=== PATIENT | male | born 1945 | race Caucasian/White ===

== ENCOUNTER 2024-08-23 17:32 | Inpatient (IN) | payer MEDICARE, OTHER ==
[~2024-08-23] VITALS: Ht 182.9 cm; Wt 106.4 kg
[2024-08-23] MEDS ORDERED: FentaNYL Citrate 50 MCG/ML 2 ML Injection IV ONE (18:55)
[2024-08-23] MEDS ORDERED: Ondansetron HCl 2 MG / ML 2ML Vial IV ONE (19:40)
[2024-08-23] MEDS ORDERED: HYDROmorphone HCl/Pf 1MG SYR IV ONE (19:40)
[2024-08-23 21:19] LABS: BASOPHILS ABSOLUTE AUTO 0.03 K/mm3 (0.00-0.23); BASOPHILS PERCENT AUTO 0 % (0-2); EOSINOPHILS ABSOLUTE AUTO 0.01 K/mm3 (0.00-0.68); EOSINOPHILS PERCENT AUTO 0 % (0-6); Hematocrit 40.4 % (37.0-53.0); Hemoglobin 13.6 g/dL (13.5-17.5); IMMATURE GRAN ABSOLUTE AUTO 0.03 K/mm3 (0.00-0.10); IMMATURE GRAN PERCENT AUTO 0 % (0-1); LYMPHOCYTES PERCENT AUTO 5 % (21-46); MONOCYTES ABSOLUTE AUTO 0.61 K/mm3 (0.16-1.47); MONOCYTES PERCENT AUTO 5 % (4-13); Mean Corpuscular HGB 30.2 pg (26.0-34.0); Mean Corpuscular HGB Conc 33.7 g/dL (31.5-36.5); Mean Corpuscular Volume 90 fL (80-100); Mean Platelet Volume 10.4 fL (9.1-12.4); NEUTROPHILS ABSOLUTE AUTO 10.47 K/mm3 (1.96-9.15); NEUTROPHILS PERCENT AUTO 89 % (41-73); Platelet Count 136 K/mm3 (150-400); RDW Coefficient Variation 12.9 % (11.7-14.2); RDW Standard Deviation 42.1 fL (35.1-46.3); Red Blood Cell Count 4.51 M/mm3 (4.30-5.90); White Blood Cell Count 11.75 K/mm3 (4.00-11.30)
[2024-08-23 21:36] LABS: Albumin, Blood 3.5 g/dL (3.4-5.0); Albumin/Globulin Ratio 1.1 (0.8-1.8); Bilirubin, Total 0.9 mg/dL (0.1-1.0); Bun/Creatinine Ratio 16.9 (12.0-20.0); Calcium, Blood 8.7 mg/dL (8.5-10.1); Creatinine, Blood 0.83 mg/dL (0.60-1.20); Globulin, Blood 3.1 g/dL (2.2-4.0); Potassium, Blood 4.5 mmol/L (3.5-5.5); Total Protein, Blood 6.6 g/dL (6.4-8.2)
[2024-08-23] MEDS ORDERED: OxyCODONE 5 mg/Acetamin 325 mg TABLET PO PRN (21:50)
[2024-08-23] MEDS ORDERED: FentaNYL Citrate 50 MCG/ML 2 ML Injection IV PRN (21:50)
[2024-08-23] MEDS ORDERED: Ondansetron HCl 2 MG / ML 2ML Vial IV PRN (21:50)
[2024-08-23] MEDS ORDERED: Metoprolol Tartrate 1 MG/ML 5 ML VIAL IV PRN (21:55)
[2024-08-23 22:11] LABS: International Normalized Ratio 1.08; Prothrombin Time Results 11.5 Sec (9.7-11.5)
[2024-08-23] MEDS ORDERED: FLU VACC TS2024-25(6MOS UP)/PF 45 MCG/0.5 ML SYRINGE IM ONE (23:00)
[2024-08-24] VITALS (20 sets, daily range): BP systolic 108–138; BP diastolic 60–92
[2024-08-24] MEDS ORDERED: FentaNYL Citrate 50 MCG/ML 2 ML Injection IV PRN (02:25)
--- NOTE | 2024-08-24 02:40 | NUR ---
ADMIT NOTE REPORT WAS RECEIVED FROM ER AT 0000. PT WAS BROUGHT DOWN ON A GURNEY AND TRANSFERED TO THE HOSPITAL BED. PT IS HERE FOR A LT HIP FX. C/O PAIN TO LT HIP. MEDICATED WITH FENTANYL. REMAINS ON O2 AT 2L VIA NC AND A BIPAP WHILE HE IS SLEEPING. PT WAS HAVING ALOT OF PAIN AND CONDOM CATH WASNT WORKING FOR HIM. CALLED MD AND GOT A ORDER TO PUT IN A WIN CATHETER. WIN WAS PUT IN PT TOLERATED WELL. FS DONE Q6HR WAS 338 AT 0000 AND HE RECEIVED HUMALOG. PT WAS ORIENTED TO ROOM AND STAFF. HES NOW NPO AFTER MIDNIGHT R/T SURGERY IN THE AM.
--- NOTE | 2024-08-24 03:42 | NUR ---
SHIFT SUMMARY PT ALERT ORIENTED ABLE TO VERBALIZE NEEDS. REMAINS ON BED REST R/T LT HIP FX. PT C/O PAIN TO LT HIP MEDICATED WITH FENTANYL. REMAINS ON 2 L VIA NC DURING THE DAY AND BIPAP AT NIGHT. REMAINS WITH A WIN CATH DRAINING YELLOW URINE. FS DONE Q6HR WAS 338 AT 0000. HES BEEN NPO SINCE 0000 FOR SURGERY. HE HAS REDNESS UNDER HIS ABD FOLDS AND A ABRASION TO HIS RT ELBOW. REMAINS ON TELEMETRY AT NSR WITH A RATE OF 75 WITH OCC PVCS. HES RESTING IN BED AT THIS TIME WITH CALL LIGHT IN REACH.
[2024-08-24 04:55] LABS: Hematocrit 40.9 % (37.0-53.0); Hemoglobin 13.8 g/dL (13.5-17.5); Mean Corpuscular HGB 30.1 pg (26.0-34.0); Mean Corpuscular HGB Conc 33.7 g/dL (31.5-36.5); Mean Corpuscular Volume 89 fL (80-100); Mean Platelet Volume 10.6 fL (9.1-12.4); Platelet Count 138 K/mm3 (150-400); RDW Coefficient Variation 13.1 % (11.7-14.2); RDW Standard Deviation 43.1 fL (35.1-46.3); Red Blood Cell Count 4.59 M/mm3 (4.30-5.90); White Blood Cell Count 10.02 K/mm3 (4.00-11.30)
[2024-08-24 06:06] LABS: Bun/Creatinine Ratio 19.6 (12.0-20.0); Calcium, Blood 8.8 mg/dL (8.5-10.1); Creatinine, Blood 0.77 mg/dL (0.60-1.20); Potassium, Blood 4.5 mmol/L (3.5-5.5)
--- NOTE | 2024-08-24 06:24 | NUR ---
PT C/O SEVERE PAIN TO LT HIP AND STATING THAT THE FENTANYL ISNT TOUCHING HIS PAIN. HE STATED THAT HE TOOK DILAUDID IN THE ER AND THAT IT WORKED MUCH BETTER ROEL HELP TO CONTROL HIS PAIN. CALLED MD AND GOT A ORDER FOR DILAUDID Q6HR PRN.
[2024-08-24] MEDS ORDERED: HYDROmorphone HCl/Pf 1MG SYR IV PRN (06:25)
--- NOTE | 2024-08-24 06:50 | NUR ---
RECEIVED A CALL FROM [employer] THAT THE PT HAS BEEN IN AFIB AND NOT IN NSR. WILL PASS ON TO NEXT SHIFT TO F/UY WITH
--- NOTE | 2024-08-24 07:22 | NUR ---
PHYSICIAN CALLED AND UPDATED THAT PT HAS WENT INTO AFIB WITH A CONTROLLD RATE. NO NEW ORDERS RECEIVED AT THIS TIME.
--- NOTE | 2024-08-24 10:00 | NUR ---
ARRIVAL NOTE PT TRANSFERRED FROM MEDICAL FLOOR TO RM 216. PT IS A/OX4. PT HAS NO COMPLAINTS AT THIS TIME. BEDSIDE REPORT DONE WITH VERTICAL CONTOUR BAND SAW OPERATOR. PT HAS WIN CATH IN PLACE AND IS DRAINING FREELY. PT'S R LEG IS EXTERNALLY ROTATED AND SHORTENED. PT HAS SMALL SKIN TEAR TO R ELBOW WHICH IS OPEN TO AIR. PT HAS SMALL AMOUNT OF REDNESS UNDER BELLY FOLD. PT WEARING HOME O2 AT 2L/MIN AND BIOX WNL. PT ORIENTED TO ROOM, USE OF CALL LIGHT. CALL LIGHT IN REACH AND SIDE RAILS UP.
[2024-08-24] MEDS ORDERED: TIZANIDINE HCL213 PO (10:27)
[2024-08-24] MEDS ORDERED: METOPROLOL SUCC25 MG PO (10:28)
[2024-08-24] MEDS ORDERED: CITALOPRAM HBR20 M9 PO (10:28)
[2024-08-24] MEDS ORDERED: FURO80 PO (10:28)
[2024-08-24] MEDS ORDERED: ACTOS30 MG PO (10:29)
[2024-08-24] MEDS ORDERED: SPIRONOLACTONE25 MG PO (10:29)
[2024-08-24] MEDS ORDERED: TAMSULOSIN HCL0.4 M1 PO (10:30)
[2024-08-24] MEDS ORDERED: Simvastatin40 MG PO (10:30)
[2024-08-24] MEDS ORDERED: ISOSORBIDE MONO30 MG PO (10:31)
[2024-08-24] MEDS ORDERED: Lactated Ringer's 1,000 ML IV SCH (11:00)
--- NOTE | 2024-08-24 11:00 | NUR ---
PRE-OP WASH DONE. PT TO DAY SURGERY WITH OR NURSE.
--- NOTE | 2024-08-24 11:38 | NUR ---
1109- PATIENT TRANSFERED TO DAY SURGERY VIA BED ON RA. DUE TO SURGEON DELAY, TRANSFERING BACK TO ROOM 216 VIA BED AT 1139. REGIONAL TRAINER GIVEN REPORT.
--- NOTE | 2024-08-24 11:52 | NUR ---
PT BACK TO ROOM 216 FROM DAY SURGERY DUE TO SURGEON BEING DELAYED. PT MEDICATED WITH DILAUDID 1MG IVP FOR PAIN.
[2024-08-24] MEDS ORDERED: CeFAZolin Sodium 2,000 MG in NS 100 ML IV SCH (12:55)
[2024-08-24] MEDS ORDERED: Tranexamic Acid 100 ML IV SCH (12:55)
--- NOTE | 2024-08-24 13:06 | NUR ---
PT TO DAY SURGERY WITH OR NURSES.
[2024-08-24] MEDS ORDERED: Bupivacaine 0.5% HCl 5 MG/ML 30MLVIAL ONE (13:11)
[2024-08-24] MEDS ORDERED: FentaNYL Citrate 50 MCG/ML 2 ML Injection ONE ×2 (13:37→15:39)
[2024-08-24] MEDS ORDERED: Lidocaine HCl 2% 20 ML MDV ONE (13:37)
[2024-08-24] MEDS ORDERED: propofoL 20 ML IV ONE (13:37)
--- NOTE | 2024-08-24 13:51 | NUR ---
PCU DISPATCHER RADIOACTIVE WASTE DISPOSAL NOTIFIED TELEMETRY BEING TURNED OFF FOR SURGERY.
[2024-08-24] MEDS ORDERED: ePHEDrine Sulfate 50 MG/ML 1ML Injection ONE (14:11)
--- NOTE | 2024-08-24 14:43 | NUR ---
REPORT TO IVETH AGGARWAL. PT REMAINS IN OR.
[2024-08-24] MEDS ORDERED: Ondansetron HCl 2 MG / ML 2ML Vial ONE (14:45)
--- NOTE | 2024-08-24 16:22 | NUR ---
PT ARRIVED TO FROM PACU AT 1615. PT DROWSY BUT WAKES WHEN SPOKEN TO. PT WAS ORIENTED TO HIMSELF, PLACE AND SITUATION BUT DID NOT REMEMBER THAT HE HAD SURGERY. PT APPEARS TO REST COMFORTABLY. PT WAS ASSISTED TO DRINK SOME WATER. VSS. CALL LIGHT PLACED WITHIN REACH.
[2024-08-24] MEDS ORDERED: Insulin Human Lispro 100 Units/ML 3ML Syringe SC SCH ×2 (17:15)
--- NOTE | 2024-08-24 18:18 | NUR ---
SHIFT SUMMARY PT IS POD#0 FROM L HIP REPAIR WITH DR. COVARRUBIAS. PAIN MANAGED WITH PO PAIN MEDICATION. PT TOLERATING CLEAR LIQUIDS AND ATTEMPTING DINNER AT THIS TIME. VSS. CALL LIGHT WITHIN REACH.
--- NOTE | 2024-08-24 19:49 | NUR ---
AFTER BEDSIDE REPORT WAS GIVEN PT STARTED COUGHING AND REPORTED FEELING LIKE FOOD WAS STUCK IN HIS THROAT. THIS RN AND NOC RN SIRIA ASSISTED TO IMPROVE PT POSITION. PT'S VOICE QUALITY CHANGED. O2 SATURATION DECREASED TO 86% TEMPORARILY WHEN PT REMOVED O2 FROM HIS NOSE, O2 WAS REPLACED AND BRIEFLY INCREASED TO 4L, O2 SATURATION INCREASED TO MID 90'S. PT IS NOW ON 2L O2 VIA NC. THIS RN ATTEMPTED TO CALL DR. KING TO REQUEST A CHEST XRAY AND ST EVAL TOMORROW, WAITING FOR RETURN CALL. SUCTION SET UP IN PT ROOM. SIRIA AGGARWAL STATED SHE WILL FOLLOW UP WITH DR. KING REGARDING THIS ISSUE.
--- NOTE | 2024-08-24 20:57 | NUR ---
UPDATE XRAY COMPLETED ORDERED. PT REPORTS, " A PIECE OF DRY CHICKEN DIDNT GO DOWN RIGHT. I FEEL FINE NOW . IT MUST HAVE PASSED ON THROUGH." DENIES SOB OR DIFFICULTY SWALLOWING. PT HAS CALL LIGHT IN REACH AND ABLE TO MAKE NEEDS KNOWN. WILL CONTINUE TO CARE FOR PT
[2024-08-24] MEDS ORDERED: Sennosides 8.6 MG Tab PO SCH (21:00)
[2024-08-24] MEDS ORDERED: Insulin Human Lispro 100 Units/ML 3ML Syringe SC ONE (21:30)
--- NOTE | 2024-08-24 22:00 | NUR ---
UPATE PT APPEARS TO BE RESTING IN BED, APPEARS COMFORTABLE. RESPIRATIONS EQUAL AND UNLABORED. CONT BIOX IN PLACE, SP02 ABOVE 93%. HAS CALL LIGHTIN REACH.
[2024-08-25 00:24] VITALS: BP 156/96
[2024-08-25 03:24] VITALS: BP 128/79
[2024-08-25] MEDS ORDERED: NS 1,000 ML IV SCH (04:05)
[2024-08-25 04:54] LABS: BASOPHILS ABSOLUTE AUTO 0.01 K/mm3 (0.00-0.23); BASOPHILS PERCENT AUTO 0 % (0-2); EOSINOPHILS PERCENT AUTO 0 % (0-6); Hematocrit 32.2 % (37.0-53.0); Hemoglobin 11.1 g/dL (13.5-17.5); IMMATURE GRAN ABSOLUTE AUTO 0.04 K/mm3 (0.00-0.10); IMMATURE GRAN PERCENT AUTO 0 % (0-1); LYMPHOCYTES ABSOLUTE AUTO 0.56 K/mm3 (0.84-5.20); LYMPHOCYTES PERCENT AUTO 5 % (21-46); MONOCYTES ABSOLUTE AUTO 1.18 K/mm3 (0.16-1.47); MONOCYTES PERCENT AUTO 11 % (4-13); Mean Corpuscular HGB 30.4 pg (26.0-34.0); Mean Corpuscular HGB Conc 34.5 g/dL (31.5-36.5); Mean Corpuscular Volume 88 fL (80-100); Mean Platelet Volume 10.9 fL (9.1-12.4); NEUTROPHILS ABSOLUTE AUTO 9.22 K/mm3 (1.96-9.15); NEUTROPHILS PERCENT AUTO 84 % (41-73); Platelet Count 122 K/mm3 (150-400); RDW Coefficient Variation 13.2 % (11.7-14.2); RDW Standard Deviation 43.1 fL (35.1-46.3); Red Blood Cell Count 3.65 M/mm3 (4.30-5.90); White Blood Cell Count 11.01 K/mm3 (4.00-11.30)
--- NOTE | 2024-08-25 05:06 | NUR ---
SHIFT SUMMARY PT RESTED WELL T/O NIGHT, PER PT REPORT. NPO WITH IVF INFUSING PER ORDERS R/T AWAITING SWALLOW EVALUATION. AQUACEL TO LEFT HIP CDI WITHOUT ANY SHADOWING NOTED. ICE THERAPY TO LEFT HIP APPLIED TOLERATED. CONT BIOX IN PLACE, CPAP OR 2L NC MAINTAINING SPO2 ABOVE 93%. TELE IN PLACE, AFIB AT 94BPM PER FORESTRY TREE PRUNER- PT DENIES SX OF DISCOMFORT, CHEST PAIN/PRESSURE. DENIES N/V. MEDICATED 2X FOR PAIN WITH PO MEDICATION PER EMAR. WIN CATH TO GRAVITY DRAIN, URINE GULSHAN/YELLOW IN COLOR. PLAN TO WORK WITH THERAPY TODAY. PT CURRENTLY RESTING IN BED WITH EYES CLOSED. IS A/OX4 AND ABLE TO MAKE NEEDS KNOWN. HAS CALL LIGHT IN REACH AND BED RAILS UP. WILL GIVE REPORT TO ONCOMING RN.
[2024-08-25 05:49] LABS: Albumin/Globulin Ratio 1.1 (0.8-1.8); Bilirubin, Total 1.1 mg/dL (0.1-1.0); Bun/Creatinine Ratio 22.3 (12.0-20.0); Calcium, Blood 8.6 mg/dL (8.5-10.1); Creatinine, Blood 0.99 mg/dL (0.60-1.20); Globulin, Blood 2.8 g/dL (2.2-4.0); Potassium, Blood 4.6 mmol/L (3.5-5.5); Total Protein, Blood 5.8 g/dL (6.4-8.2)
--- NOTE | 2024-08-25 05:50 | NUR ---
TELE UPDATE PER [employer] PRINCIPAL SOLUTION SPECIALIST, ONGOING ST DEPRESSION WAS NOTED. PT DENIES FEELING ANY CHANGES OR DISCOMFORT. VITALS SIGNS STABLE. PT CURRENTLY RESTING IN BED. WILL INFORM DAY RN
[2024-08-25 07:21] VITALS: BP 135/88
[2024-08-25] MEDS ORDERED: Insulin Regular 100 UNIT/ML 10ML Vial SC SCH (07:30)
[2024-08-25] MEDS ORDERED: Metoprolol Succinate 25 MG TABCR PO SCH (09:00)
[2024-08-25] MEDS ORDERED: Citalopram Hydrobromide 20 MG Tab PO SCH (09:00)
[2024-08-25] MEDS ORDERED: Furosemide 80 MG Tab PO SCH (09:00)
[2024-08-25] MEDS ORDERED: Isosorbide Mononitrate 30 MG TABCR PO SCH (09:00)
[2024-08-25] MEDS ORDERED: Spironolactone 25 MG Tab PO SCH (09:00)
[2024-08-25] MEDS ORDERED: Insulin Glargine-Yfgn 100 Unit/mL 3 ML SYR SC SCH (12:00)
[2024-08-25 15:12] VITALS: BP 93/60
[2024-08-25] MEDS ORDERED: Tamsulosin HCl 0.4 MG Cap PO SCH (18:00)
--- NOTE | 2024-08-25 18:20 | NUR ---
SHIFT SUMMARY POD1 L HIP NAILING, A/OX4, VSS, TOLERATING PO, WORKED WITH THERAPY [place] BUT WAS ONLY ABLE TO STAND AT THE BEDSIDE BUT UNABLE TO STAND ALL THE WAY UP, PAIN WELL MANAGED TODAY PER EMAR, PLAN POTENTIALLY FOR SNF REHAB, KIDS TO COME DOWN TOMORROW TO HELP DISCUSS PLACEMENT OPTIONS. NO ACUTE EVENTS THIS SHIFT, CALL LIGHT IN REACH.
[2024-08-25 19:21] VITALS: BP 99/57
[2024-08-25] MEDS ORDERED: Atorvastatin 10 MG Tab PO SCH (21:00)
[2024-08-26 04:34] VITALS: BP 122/77
[2024-08-26 05:03] LABS: BASOPHILS ABSOLUTE AUTO 0.03 K/mm3 (0.00-0.23); BASOPHILS PERCENT AUTO 0 % (0-2); EOSINOPHILS PERCENT AUTO 1 % (0-6); Hematocrit 28.4 % (37.0-53.0); Hemoglobin 9.9 g/dL (13.5-17.5); IMMATURE GRAN ABSOLUTE AUTO 0.03 K/mm3 (0.00-0.10); IMMATURE GRAN PERCENT AUTO 0 % (0-1); LYMPHOCYTES ABSOLUTE AUTO 1.21 K/mm3 (0.84-5.20); LYMPHOCYTES PERCENT AUTO 15 % (21-46); MONOCYTES ABSOLUTE AUTO 1.04 K/mm3 (0.16-1.47); MONOCYTES PERCENT AUTO 13 % (4-13); Mean Corpuscular HGB 30.7 pg (26.0-34.0); Mean Corpuscular HGB Conc 34.9 g/dL (31.5-36.5); Mean Corpuscular Volume 88 fL (80-100); Mean Platelet Volume 10.9 fL (9.1-12.4); NEUTROPHILS ABSOLUTE AUTO 5.91 K/mm3 (1.96-9.15); NEUTROPHILS PERCENT AUTO 71 % (41-73); Platelet Count 101 K/mm3 (150-400); RDW Coefficient Variation 13.1 % (11.7-14.2); Red Blood Cell Count 3.22 M/mm3 (4.30-5.90); White Blood Cell Count 8.32 K/mm3 (4.00-11.30)
[2024-08-26 05:26] LABS: Bun/Creatinine Ratio 29.7 (12.0-20.0); Calcium, Blood 8.5 mg/dL (8.5-10.1); Creatinine, Blood 1.01 mg/dL (0.60-1.20); Potassium, Blood 3.8 mmol/L (3.5-5.5)
--- NOTE | 2024-08-26 05:49 | NUR ---
SHIFT SUMMARY POD 2 LEFT HIP REPAIR. AQUACEL DRESSING COVERING INCISION CDI. ICE THERAPY APPLIED TOLERATED TO HIP. MEDICATED 2X FOR PAIN PER EMAR. PT REFUSES SCD'S AT THIS TIME DUE TO DISCOMFORT. TOLERATING PO INTAKE, ON A SOFT CHEW DIET. DENIES NV. ENCOURAGED AMBULATION AND PO INTAKE. IV SL TO RIGHT AC. PER AUDIT REVIEWER HR IS AFIB AT 79 BPM , PT DENIES DISCOMFORT. CONT BIOX IN PLACE, SPO2 ABOVE 93 ON CPAP, DENIES SOB. REFUSING TO HAVE WIN CATH REMOVED DUE TO AMBULATION AND INCONTINENCE. EDUCATED ON RISK VS BENEFITS BY THIS RN. PT VERBALIZED UNDERSTANDING AND CONT TO REFUSE REMOVAL. WILL HAVE DAY RN NOTIFY PROVIDER. PLAN FOR PATIENT TO WORK WITH THERAPY. PT CURRENLTY IN BED WITH CPAP ON AND CALL LIGHT IN REACH. WILL GIVE REPORT TO ONCOMING RN.
[2024-08-26 07:21] VITALS: BP 109/54
--- NOTE | 2024-08-26 12:11 | NUR ---
SNF CHOICES PT PROVIDED INFORMATION ON LOCAL AREA SNF FOR REHAB AT DISCHARGE. PT WOULD PREFER TO GO TO A FACILITY IN [place] HIS KIDS LIVE UP THERE AND WILL BE ABLE TO PARTICIPATE IN HIS REHAB WIHT HIM THERE. HE LISTED HIS PREFERENCE FOLLOWS FOR TOP 5: 1. [facility] [address] [facility], 2. [facility] [address] [facility], 3. [facility] [address] [facility] [phone] 4. [facility] [address] [facility] [phone] 5. [facility] [address] [facility],
[2024-08-26 15:15] VITALS: BP 98/58
[2024-08-26 15:17] VITALS: BP 94/55
[2024-08-26 19:23] VITALS: BP 102/54
--- NOTE | 2024-08-26 19:35 | NUR ---
SHIFT SUMMARY POD2 L HIP NAILING, A/OX4, VSS, TOLERATING PO, DENIES PAIN WHILE NOT MOVING, PT WAS RELUCTANT TO HAVE WIN REMOVED WANTING IT TO STAY IN UNTIL DISCHARGE OS HE WOULD NOT HAVE TO GET UP OR MORE, EDUCTED HIM ON UTI RISK AND DISCUSSED ALTERNATIVES, ATTEMPTED TO USE A CONDOM CATH BUT THIS WAS NOT ABLE TO STAY IN PLACE, FULL BED CHANGE GIVEN. PT MADE CHOICES ON SNF UP IN [place] IN WHICH THIS INFORMATION IS IN ANOTHER NURSE NOTE. NO ACUTE EVENTS THIS SHIFT, CALL LIGHT IN REACH.
[2024-08-27 04:21] VITALS: BP 118/60
[2024-08-27 04:33] LABS: BASOPHILS ABSOLUTE AUTO 0.04 K/mm3 (0.00-0.23); BASOPHILS PERCENT AUTO 1 % (0-2); EOSINOPHILS ABSOLUTE AUTO 0.19 K/mm3 (0.00-0.68); EOSINOPHILS PERCENT AUTO 3 % (0-6); Hematocrit 28.7 % (37.0-53.0); Hemoglobin 9.8 g/dL (13.5-17.5); IMMATURE GRAN ABSOLUTE AUTO 0.03 K/mm3 (0.00-0.10); IMMATURE GRAN PERCENT AUTO 0 % (0-1); LYMPHOCYTES ABSOLUTE AUTO 1.19 K/mm3 (0.84-5.20); LYMPHOCYTES PERCENT AUTO 18 % (21-46); MONOCYTES ABSOLUTE AUTO 0.86 K/mm3 (0.16-1.47); MONOCYTES PERCENT AUTO 13 % (4-13); Mean Corpuscular HGB 30.4 pg (26.0-34.0); Mean Corpuscular HGB Conc 34.1 g/dL (31.5-36.5); Mean Corpuscular Volume 89 fL (80-100); Mean Platelet Volume 11.3 fL (9.1-12.4); NEUTROPHILS PERCENT AUTO 66 % (41-73); Platelet Count 107 K/mm3 (150-400); RDW Coefficient Variation 12.8 % (11.7-14.2); RDW Standard Deviation 41.8 fL (35.1-46.3); Red Blood Cell Count 3.22 M/mm3 (4.30-5.90); White Blood Cell Count 6.71 K/mm3 (4.00-11.30)
[2024-08-27 04:58] LABS: Bun/Creatinine Ratio 28.4 (12.0-20.0); Calcium, Blood 8.4 mg/dL (8.5-10.1); Creatinine, Blood 0.81 mg/dL (0.60-1.20); Potassium, Blood 3.5 mmol/L (3.5-5.5)
--- NOTE | 2024-08-27 05:32 | NUR ---
SHIFT SUMMARY POD 3 S/P LEFT HIP NAIL. AQUACEL DRESSING X 2 CDI WITH SMALL AMOUNT OF SS EXUDATE. ECCHYMOSIS NOTED AROUND INCISION/DRESSING. [facility] THERAPY TO LEFT HIP TOLERATED T/O SHIFT. PT UNINTERESTED IN ASSISTING WITH REPOSTIONING SELF OR ALLOWING STAFF TO REPOSITION HIM. REFUSED SCD'S. PER BATCH MAKER, HR AFIB AT 71 BPM. IS TOLERATING PO INTAKE, DENIES N/V. IV SL. ENCOURAGE FLUID CONSUMPTION AND OOB, PT VERBALIZED UNDERSTANDING. PAIN MANAGED PER EMAR X 1 DURING SHIFT. PLAN FOR POSSIBLE D/C TO SNF. FAMILY HOPEFUL FOR FACILITY IN [place] (SEE PREVIOUS NOTE). PT REFUSING INCONTINENCE CARE DURING NIGHT, WILL ATTEMPT AGAIN PRIOR TO SHIFT CHANGE. EDUCATED ON RISKS AND BENEFITS. PT CURRENTLY RESTING IN BED WITH BIPAP AND CONT BIOX IN PLACE, SPO2 ABOVE 93%. HAS CALL LIGHT IN REACH AND ABLE TO MAKE NEEDS KNOWN. WILL GIVE REPORT TO ONCOMING RN.
[2024-08-27 07:00] VITALS: BP 115/55
[2024-08-27] MEDS ORDERED: Psyllium 1 EA Pack PO SCH (14:00)
[2024-08-27] MEDS ORDERED: Polyethylene Glycol 3350 17 gm PO ONE (14:00)
[2024-08-27] MEDS ORDERED: Pioglitazone HCl 15 MG Tab PO SCH (14:00)
[2024-08-27] MEDS ORDERED: Polyethylene Glycol 3350 17 gm PO PRN (14:00)
[2024-08-27 14:59] VITALS: BP 113/61
[2024-08-27 19:17] VITALS: BP 112/62
--- NOTE | 2024-08-27 19:48 | NUR ---
SHIFT SUMMARY PT IS POD3 FOR L HIP NAILING. DRESSINGS C/D/I. SOME BRUISING PRESENT AROUND SURGICAL SITE. PT USING POLAR PACK FOR PAIN CONTROL AND IS BEING MEDICATED PER EMAR, PAIN IS TOLERABLE AT REST BUT VERY PAINFUL DURING MOVEMENT. PT MEDICATED BEFORE REPOSITIONING NEEDED. PT HAVING INC VOIDS, ATTENDS IN PLACE. UNMOTIVATED TO REPOSITION, TURN IN BED, OR STAND W/ WALKER. BOWEL CARE GIVEN ORDERED. PT ON 2L NC W/ O2 SATS >92%. VSS. PLAN FOR DISCHARGE TOMORROW AFTER PT HAS BM. CALL LIGHT IN REACH.
[2024-08-27] MEDS ORDERED: Docusate Sodium 100 MG Cap PO SCH (21:00)
--- NOTE | 2024-08-28 03:58 | NUR ---
SHIFT SUMMARY NO ACUTE CHANGES T/O TERMITE CONTROL SERVICER. PT CONTINUES TO BE UNMOTIVATED WITH CARE. REFUSING ATTENDS CHANGE UNTIL THIS MORNING. BOWEL CARE ADMINISTERED PER ORDERS. SPO2 ABOVE 93% WITH CPAP IN PLACE. ENCOURAGED OOB AND I.S. USE. PT A/OX4, VSS. PAIN MANAGED WITH [facility]YO THERAPY AND PER EMAR. TOLERATING PO INTAKE, DENIES N/V. REFUSES SCDS. PLAN FOR DISCHARGE TODAY. PT RESTING IN BED WITH EYES CLOSED, RESPIRATIONS EVEN AND UNLABORED WITH CPAP IN PLACE AND CALL LIGHT IN REACH. WILL GIVE REPORT TO ONCOMING RN
[2024-08-28 04:56] VITALS: BP 122/72
[2024-08-28 05:58] LABS: BASOPHILS ABSOLUTE AUTO 0.04 K/mm3 (0.00-0.23); BASOPHILS PERCENT AUTO 1 % (0-2); EOSINOPHILS ABSOLUTE AUTO 0.21 K/mm3 (0.00-0.68); EOSINOPHILS PERCENT AUTO 3 % (0-6); Hematocrit 29.5 % (37.0-53.0); IMMATURE GRAN ABSOLUTE AUTO 0.04 K/mm3 (0.00-0.10); IMMATURE GRAN PERCENT AUTO 1 % (0-1); LYMPHOCYTES ABSOLUTE AUTO 1.15 K/mm3 (0.84-5.20); LYMPHOCYTES PERCENT AUTO 18 % (21-46); MONOCYTES ABSOLUTE AUTO 0.86 K/mm3 (0.16-1.47); MONOCYTES PERCENT AUTO 14 % (4-13); Mean Corpuscular HGB 30.2 pg (26.0-34.0); Mean Corpuscular HGB Conc 33.9 g/dL (31.5-36.5); Mean Corpuscular Volume 89 fL (80-100); Mean Platelet Volume 10.8 fL (9.1-12.4); NEUTROPHILS ABSOLUTE AUTO 3.94 K/mm3 (1.96-9.15); NEUTROPHILS PERCENT AUTO 63 % (41-73); Platelet Count 136 K/mm3 (150-400); RDW Coefficient Variation 12.8 % (11.7-14.2); RDW Standard Deviation 41.9 fL (35.1-46.3); Red Blood Cell Count 3.31 M/mm3 (4.30-5.90); White Blood Cell Count 6.24 K/mm3 (4.00-11.30)
[2024-08-28 06:15] LABS: Bun/Creatinine Ratio 22.6 (12.0-20.0); Calcium, Blood 8.4 mg/dL (8.5-10.1); Creatinine, Blood 0.8 mg/dL (0.60-1.20); Potassium, Blood 3.6 mmol/L (3.5-5.5)
[2024-08-28 07:36] VITALS: BP 113/67
[2024-08-28] MEDS ORDERED: Sod Phosphate/Sod Biphosphate 132 ML BTL PR ONE ×2 (09:00→13:50)
[2024-08-28] MEDS ORDERED: Insulin Glargine-Yfgn 100 Unit/mL 3 ML SYR SC SCH (09:00)
[2024-08-28] MEDS ORDERED: Insulin Glargine-Yfgn 100 Unit/mL 3 ML SYR SC ONE (09:55)
[2024-08-28] MEDS ORDERED: Bisacodyl 10 MG Supp PR ONE (15:30)
--- NOTE | 2024-08-28 15:36 | NUR ---
PT REQUESTED TO ATTEMPT TO HAVE BOWEL MOVEMENT ON HIS OWN BEFORE ENEMA, ENEMA DELAYED. ENEMA ATTEMPTED, BUT FLUID UNABLE TO ENTER RECTUM DUE TO STOOL AT THE RECTUM. NOTIFIED DR. BROWN, ORDER RECIEVED FOR DULCOLAX SUPP.
--- NOTE | 2024-08-28 18:33 | NUR ---
SHIFT SUMMARY PT IS POD4 FOR L HIP NAILING. AQUACELS IN PLACE W/ LIGHT SHADOWING, BRUISING AROUND DRESSINGS PRESENT. PT ABLE TO WIGGLE L TOES, PEDAL PULSE STRONG. SOME SWELLING PRESENT TO L HIP. ENCOURAGED PT TO REPOSITION SELF AND MEDICATED NEEDED FOR PAIN. PT CURRENTLY STATES PAIN IN TOLERABLE. PT HAD LARGE BM AND WAS ABLE TO BE CHANGED 1 ASST. VSS. LEGS ELEVATED CURRENTLY FOR PT COMFORT. NO TELE EVENTS THIS SHIFT, PT CURRENTLY AFIB @ 86. CALL LIGHT IN REACH.
[2024-08-28 19:26] VITALS: BP 99/72
[2024-08-28] MEDS ORDERED: Apixaban 5 MG Tab PO SCH (21:00)
[2024-08-29 05:33] VITALS: BP 115/65
[2024-08-29 06:09] LABS: BASOPHILS ABSOLUTE AUTO 0.04 K/mm3 (0.00-0.23); BASOPHILS PERCENT AUTO 1 % (0-2); EOSINOPHILS ABSOLUTE AUTO 0.17 K/mm3 (0.00-0.68); EOSINOPHILS PERCENT AUTO 3 % (0-6); Hematocrit 28.4 % (37.0-53.0); Hemoglobin 9.6 g/dL (13.5-17.5); IMMATURE GRAN ABSOLUTE AUTO 0.05 K/mm3 (0.00-0.10); IMMATURE GRAN PERCENT AUTO 1 % (0-1); LYMPHOCYTES ABSOLUTE AUTO 0.88 K/mm3 (0.84-5.20); LYMPHOCYTES PERCENT AUTO 15 % (21-46); MONOCYTES ABSOLUTE AUTO 0.77 K/mm3 (0.16-1.47); MONOCYTES PERCENT AUTO 13 % (4-13); Mean Corpuscular HGB 29.8 pg (26.0-34.0); Mean Corpuscular HGB Conc 33.8 g/dL (31.5-36.5); Mean Corpuscular Volume 88 fL (80-100); Mean Platelet Volume 10.2 fL (9.1-12.4); NEUTROPHILS ABSOLUTE AUTO 3.95 K/mm3 (1.96-9.15); NEUTROPHILS PERCENT AUTO 67 % (41-73); Platelet Count 155 K/mm3 (150-400); RDW Coefficient Variation 13.1 % (11.7-14.2); RDW Standard Deviation 41.6 fL (35.1-46.3); Red Blood Cell Count 3.22 M/mm3 (4.30-5.90); White Blood Cell Count 5.86 K/mm3 (4.00-11.30)
[2024-08-29 06:43] LABS: Albumin, Blood 2.7 g/dL (3.4-5.0); Albumin/Globulin Ratio 0.9 (0.8-1.8); Bilirubin, Total 1.7 mg/dL (0.1-1.0); Bun/Creatinine Ratio 24.3 (12.0-20.0); Calcium, Blood 8.4 mg/dL (8.5-10.1); Creatinine, Blood 0.74 mg/dL (0.60-1.20); Potassium, Blood 3.8 mmol/L (3.5-5.5); Total Protein, Blood 5.7 g/dL (6.4-8.2)
[2024-08-29 07:20] VITALS: BP 115/58
[2024-08-29] MEDS ORDERED: Insulin Glargine-Yfgn 100 Unit/mL 3 ML SYR SC SCH ×2 (09:00)
[2024-08-29] MEDS ORDERED: ELIQUIS2.5 MG PO (10:48)
[2024-08-29] MEDS ORDERED: DOCU100 PO (10:49)
[2024-08-29] MEDS ORDERED: INSULIN GL100 UNIT/2 SC (10:50)
[2024-08-29] MEDS ORDERED: HUMULIN R100 UNIT/2 SC (10:50)
[2024-08-29] MEDS ORDERED: MIRALAX17 GM PO (10:51)
[2024-08-29] MEDS ORDERED: METAMUCIL POWD798 GM PO (10:52)
[2024-08-29 10:56] VITALS: BP 113/64
== END 2024-08-29 12:37 | DRG 481 ==
LOC: ER 17:32 → MEDS 21:46 → ERHOLD 21:46 → SURS 21:46 → MEDS 08-24 00:07 → SURS 08-24 10:06
PROVIDERS: Family Medicine; Hospitalist; Nurse Practitioner Acute Care; Orthopaedic Surgery; Student in an Organized Health Care Education/Training Program; ADMIT Internal Medicine
PROC: 0QS736Z Reposition Left Upper Femur with Intramedullary Internal Fixation Device, Percutaneous Approach (ICD-10-PCS; principal; 2024-08-24 12:00)
DX: S72.142A Displaced intertrochanteric fracture of left femur, initial encounter for closed fracture (principal); I48.20 Chronic atrial fibrillation, unspecified; I25.10 Atherosclerotic heart disease of native coronary artery without angina pectoris; I10 Essential (primary) hypertension; E11.42 Type 2 diabetes mellitus with diabetic polyneuropathy; E78.00 Pure hypercholesterolemia, unspecified; E11.65 Type 2 diabetes mellitus with hyperglycemia; D64.89 Other specified anemias; Z95.1 Presence of aortocoronary bypass graft; N40.0 Benign prostatic hyperplasia without lower urinary tract symptoms; K59.00 Constipation, unspecified; W18.30XA Fall on same level, unspecified, initial encounter
CPT/HCPCS: 36415; 71045; 73502; 73560-LT; 73560-RT; 80048; 80053; 82947; 83036; 83880; 85025; 85027; 85610; 85730; 92610; 93005; 93010; 93306; 94660; 94762; 96374; 96375; 97110; 97162; 97530; 99285-25; A9270; C1713; J0690; J1171; J1815; J2405; J2704; J3010; J7120